=== PATIENT | female | born 1955 | race Caucasian/White ===

== ENCOUNTER 2018-07-16 12:46 | Outpatient (CLI) ==
--- NOTE | 2018-07-16 19:15 | DEXA ---
EXAM: Bone Densitometry DEXA HISTORY: Osteoporosis screening COMPARISON: None FINDINGS: DEXA scan right and left hip was performed. Quality of the study is good. Bone mineral density mean total is 1.090 grams per square centimeter. T-score is 0.7. Z-score is 0.8. Bone mineral density o f the mean femoral neck is 1.038 with a T score of 0.0 and a Z score of 0.5. IMPRESSION: 1. Right and left hip: Normal bone marrow density 2. Right and left femoral neck: Normal bone marrow density 3. 10 year risk for major osteoporotic fracture is 6.0% and for hip fracture is 0.2%. Reference Values according to World Health Organization criteria: T score greater than -1 is normal T score -1 to -2.5 is osteopenia T score less than -2.5 is osteoporosis.
--- NOTE | 2018-07-24 08:53 | MAMMO ---
EXAM: Bilateral digital screening mammogram (2-D and 3-D) History: Screening Comparison: None available. Findings: MLO and CC views of bilateral breasts demonstrate scattered fibroglandular breast parenchy ma. CAD was reviewed by the radiologist. Tomosynthesis was performed. There are no dominant masses , no suspicious microcalcifications and no architectural distortions Impression: Negative mammogram. Recommend followup routine screening mammography in 1 year. BIRADS 1
== END 2018-07-16 12:47 | disposition home or self-care (01) ==
LOC: RAD 12:46
PROVIDERS: ATTEND Internal Medicine
DX: Z12.31 Encounter for screening mammogram for malignant neoplasm of breast (principal); Z13.820 Encounter for screening for osteoporosis
CPT/HCPCS: 77067